=== PATIENT | female | born 1990 | race Two or more races ===

== ENCOUNTER 2022-07-23 08:52 | Emergency (ER) | payer MEDICAID ==
[~2022-07-23] VITALS: Ht 167.6 cm; Wt 73.0 kg
[2022-07-23 11:44] VITALS: BP 131/84
[2022-07-23] MEDS ORDERED: ACET-1158 PO (11:59)
[2022-07-23] MEDS ORDERED: AMOX-277 PO (11:59)
== END 2022-07-23 12:14 | disposition home or self-care (01) ==
LOC: ER 08:52
DX: H66.92 Otitis media, unspecified, left ear (principal); J02.9 Acute pharyngitis, unspecified; Z79.899 Other long term (current) drug therapy; Z79.2 Long term (current) use of antibiotics